=== PATIENT | female | born 1980 | race Caucasian/White ===

== ENCOUNTER → 2019-09-04 09:01 | Outpatient (BNVA) | payer BC, SELFPAY | PROVIDERS: Family Provider Registered Nurse; PCP Registered Nurse; Referring Provider Internal Medicine Rheumatology; Visit Provider Specialist | DX: R29.90 Unspecified symptoms and signs involving the nervous system (principal); G37.9 Demyelinating disease of central nervous system, unspecified | CPT/HCPCS: 99202 ==